=== PATIENT | female | born 2000 | race Two or more races ===

== ENCOUNTER 2024-09-18 20:03 | Emergency (ER) | payer MEDICAID, SELFPAY ==
[2024-09-18 20:03] VITALS: BMI 24.0
[2024-09-18 20:44] VITALS: BP 139/83; PULSE 105; RESP 16; TEMP 37.4; O2SAT 100
--- NOTE | 2024-09-18 20:58 | EDNOTE_ITS ---
ED Headache RME/HPI General Chief Complaint: Headache Stated Complaint: HEADACHE X1DAY Time Seen by Provider: 09/18/24 20:33 Arrival date/time: 09/18/24 20:03 This is a 24-year-old female that comes in with complaints of headache that started today. Patient also arrives with a low-grade temp. Patient denies any sick contacts at home. Patient denies any cough, runny nose, sore throat, ear pain, body aches. Related Data Home Medications ?Medication ?Instructions ?Recorded ?Confirmed prenat.vits,lori,[id number] 1 tab PO QDAY 05/24/21 05/24/21 Previous Rx's ?Medication ?Instructions ?Recorded ibuprofen 800 mg tablet 800 mg PO Q6H PRN pain #14 tabs 09/18/24 Allergies Allergy/AdvReac Type Severity Reaction Status Date / Time No Known Allergies Allergy Verified 05/24/21 18:06 Review of Systems Review of Systems Systems Reviewed: All systems reviewed, normal except as documented Past Medical History Surgical History SURGICAL: Negative Section ED Exam General General appearance: Present alert and in no apparent distress Head Head exam: Present atraumatic Eye Eye exam: Present normal appearance, PERRL and EOMI ENT ENT exam: Present normal exam, normal oropharynx and mucous membranes moist Neck Neck exam: Present normal inspection, full ROM and trachea midline Chest Chest inspection: Present normal inspection and symmetric chest wall rise Respiratory Respiratory exam: Present normal lung sounds bilaterally Cardiovascular Cardiovascular exam: Present regular rate, normal rhythm and normal heart sounds Abdominal Exam Abdominal exam: Present soft Extremities Exam Extremities exam: Present normal inspection and full ROM Back Exam Back exam: Present normal inspection and full ROM Neurological Exam Neurological exam: Present alert, oriented X3 and CN II-XII intact Psychiatric Psychiatric exam: Present normal affect and normal mood Skin Skin exam: Present warm, dry, intact and normal color Course Quality Measures none Orders Category Date Time Status Bedside Influenza A&B Antigen Test NOW Care 09/18/24 20:57 Completed HCG Qualitative,Urine Stat Lab 09/18/24 21:00 Completed Urinalysis, C/S if Indicated Stat Lab 09/18/24 21:00 Completed Urine Culture Stat Lab 09/18/24 21:00 Completed Acetaminophen Tab [Tylenol ES Tab] Med 09/18/24 20:57 Discontinued 1,000 mg PO X1 ONE Ibuprofen Tab [Motrin Tab] Med 09/18/24 20:57 Discontinued 800 mg PO X1 ONE Vital Signs Vital signs: Vital Signs Temperature 99.4 F 09/18/24 20:44 Pulse Rate 105 H 09/18/24 20:44 Respiratory Rate 16 09/18/24 20:44 Blood Pressure 139/83 H 09/18/24 20:44 Pulse Oximetry (%) 100 09/18/24 20:44 Headache MDM Narrative MDM Narrative:: Patient given Tylenol and ibuprofen for pain. Urine shows UTI. Will treat. Will send a urine culture. Patient instructed to follow-up with primary provider in 2 days. Emergency room if symptoms change or worsen. Patient data External records reviewed:: [facility] previous records Clinical information provided by:: patient Social determinants that could affect healthcare access:: none Patient has the following chronic illnesses:: None How is presenting disease/condition affected by chronic disease/condition?: no chronic disease Evaluation data The following diagnostics were reviewed and interpreted by me:: lab results Lab and/or radiology exams considered but not ordered:: None Interpretation Summary: None Medications / Prescriptions Medications or Prescriptions considered but not ordered:: None Medication administrations:: Medication Administration History Discontinued Medications Acetaminophen (Acetaminophen 500 Mg Tablet) 1,000 mg PO X1 ONE Stop: 09/18/24 20:58 Last Admin: 09/18/24 21:04 Dose: 1,000 mg Documented By: ADRIEN Ibuprofen (Ibuprofen Tab 400 Mg Tablet) 800 mg PO X1 ONE Stop: 09/18/24 20:58 Last Admin: 09/18/24 21:04 Dose: 800 mg Documented By: ADRIEN See [facility] Consultations Consultation(s) initiated? (list below): No Diagnosis Differential diagnosis headache: migraine, headache and other (UTI) Most likely diagnosis given after review of the tests above:: Headache, UTI Admission Indicated Admission indicated?: not indicated Admission Request Was there a request for admission?: No Disposition Plan Disposition Plan: Discharge Discharge Attestation Discharge Attestation: The patient and all family members were given an opportunity to ask questions and understood the discharge instructions. Discharge instructions specifically effects, indications for sooner follow up or return to the emergency department, and the expected course of current diagnosis. Patient condition: Stable Discharge Plan Plan Patient Disposition: HOME (Self Care) Patient condition on transfer: Stable Prescriptions/Referrals Prescriptions/Med Rec: New ibuprofen 800 mg tablet 800 mg PO Q6H PRN (Reason: pain) Qty: 14 0RF No Action Vitamin Tablet 1 tab PO QDAY Referrals: Temporary Provider,ED [Physician] - In 1 week Problem List Clinical Impression: UTI (urinary tract infection), Headache Patient/Caregiver Discharge Instructions Discharge Activity: activity as tolerated Education Materials: Self-Care for Headaches, ED CYSTITIS Female Adult Additional Instructions: Follow-up with urine culture with primary provider. Come back to the emergency room if symptoms change or worsen. Print Language: Portuguese Stand Alone Forms: Gaby Award Info., Patient Portal Info Letter PA/LINK WIRE FAB[employer]IC MACHINE TENDER Supervising Physician PA/LINK WIRE [employer] MACHINE TENDER Supervising Physician: mariel
[2024-09-18] MEDS: ACETAMINOPHEN 500 MG TABLET 1000 MG PO (21:04)
[2024-09-18] MEDS: IBUPROFEN TAB 400 MG TABLET 800 MG PO (21:04)
[2024-09-18 21:13] LABS: Collection Type, Urine Voided
[2024-09-18 21:35] LABS: Bilirubin,Urine Negative (Negative); Blood,Urine 3+ (Negative); Clarity,Urine Turbid (Clear/Hazy); Color,Urine Colorless (Lt Yel-Yel); Culture Indicated,Urine Yes; Glucose, Urine Negative (Negative); Ketones,Urine Negative (Negative); Leukocyte Esterase,Urine Positive (Negative); Nitrite,Urine Negative (Negative); PH,Urine 7.5 (5.0-7.0); Protein,Urine Trace (Neg - Trace); RBC,Urine 1089 /hpf (0-3); Specific Gravity,Urine 1.021 (1.001-1.035); Squamous Epithelial Cell,Urine 3 /hpf (0-5); Urobilinogen,Urine Negative mg/dL (0.0-1.0); WBC,Urine 15 /hpf (0-5)
[2024-09-18 21:36] LABS: HCG Qualitative,Urine Negative
== END 2024-09-18 22:31 | disposition home or self-care (01) ==
PROVIDERS: Nurse Practitioner Family; Emergency Provider Emergency Medicine; PCP Family Medicine
DX: N39.0 Urinary tract infection, site not specified (principal); R51.9 Headache, unspecified
CPT/HCPCS: 81001; 81025; 87086; 99283; A9270